=== PATIENT | male | born 1990 | race American Indian/Alaskan Native ===

== ENCOUNTER 2021-03-04 12:09 | Emergency (ER) | payer MEDICAID ==
[2021-03-04] MEDS ORDERED: SODIUM CHLORIDE 0.9% 1000 ML 1,000 ML IV ONE (12:52)
[2021-03-04] MEDS ORDERED: dexAMETHasone 4 MG/ML VIAL IV ONE (12:56)
[2021-03-04] MEDS ORDERED: HYDROcodone/ACETAMINOPHEN 5-325 MG TAB PO ONE (12:57)
--- NOTE | 2021-03-04 12:57 | Emergency Department Report ---
ED General Adult HPI - General Chief complaint: Skin/Abscess/Foreign Body Stated complaint: LEFT SIDE OF FACE/SWOLLEN/TOOTHPAIN Time Seen by Provider: 03/04/21 12:51 Source: patient Mode of arrival: Ambulatory Limitations: No Limitations - History of Present Illness Initial comments: 31 yo comes to er with facial swelling. He reports dental caries. He states he woke up this AM with the swelling- none of it was there yesterday. vss abc intact ambulatory and taking po non toxic non ill appearing no tachycardia, hypotension or fever -: Gradual (dental caries), Sudden (facial swelling ), days(s) Location: face Radiation: non-radiation Consistency: constant Improves with: none Worsens with: none Associated Symptoms: denies other symptoms. denies: confusion, chest pain, co ugh, diaphoresis, fever/chills, headaches, loss of appetite, malaise, nausea/vomiting, rash, seizure, shortness of breath, syncope, weakness Treatments Prior to Arrival: NSAID - Related Data Previous Rx's Medication Instructions Recorded Last Taken Type Clindamycin [Clindamycin CAP] 300 mg PO Q8H #30 cap 03/04/21 Unknown Rx Allergies Allergy/AdvReac Type Severity Reaction Status Date / Time No Known Allergies Allergy Verified 03/04/21 12:47 ED Review of Systems ROS: Stated complaint: LEFT SIDE OF FACE/SWOLLEN/TOOTHPAIN Other details as noted in HPI Comment: All other systems reviewed and negative ED Past Medical Hx - Past Medical History Previous Medical History?: Yes Hx Hypertension: Yes - Surgical History Past Surgical History?: No - Family History Family history: no significant - Social History Smoking Status: Never Smoker Substance Use Type: None - Medications Home Medications: Home Medications Medication Instructions Recorded Confirmed Last Taken Type Clindamycin [Clindamycin CAP] 300 mg PO Q8H #30 cap 03/04/21 Unknown Rx ED Physical Exam - General Limitations: No Limitations General appearance: alert, in no apparent distress - Head Head exam: Present: atraumatic, normocephalic - Eye Eye exam: Present: normal appearance - ENT ENT exam: Present: mucous membranes moist - Expanded ENT Exam Expanded Mouth exam: Present: normal external inspection Teeth exam: Present: normal inspection Throat exam: Positive: normal inspection - Neck Neck exam: Present: normal inspection - Respiratory Respiratory exam: Present: normal lung sounds bilaterally. Absent: respiratory distress - Cardiovascular Cardiovascular Exam: Present: regular rate, normal rhythm. Absent: systolic murmur, diastolic murmur, rubs, gallop - GI/Abdominal GI/Abdominal exam: Present: soft, normal bowel sounds - Rectal Rectal exam: Present: deferred - Extremities Exam Extremities exam: Present: normal inspection - Back Exam Back exam: Present: normal inspection - Neurological Exam Neurological exam: Present: alert, oriented X3 - Psychiatric Psychiatric exam: Present: normal affect, normal mood - Skin Skin exam: Present: warm, dry, intact, normal color. Absent: rash ED Course Vital Signs 03/04/21 03/04/21 03/04/21 12:44 13:28 16:41 Temperature 99.3 F Pulse Rate 90 84 89 Respiratory 16 18 18 Rate Blood Pressure 164/102 Blood Pressure 168/104 142/98 [Left] O2 Sat by Pulse 100 99 98 Oximetry ED Medical Decision Making - Lab Data Result diagrams: 03/04/21 13:38 03/04/21 13:38 - Radiology Data Radiology results: report reviewed, image reviewed see report - Medical Decision Making Lab Results 03/04/21 03/04/21 Range/Units 13:38 13:38 WBC 18.2 H (4.5-11.0) K/mm3 RBC 4.88 (3.65-5.03) M/mm3 Hgb 14.0 (11.8-15.2) gm/dl Hct 41.6 (35.5-45.6) % MCV 85 (84-94) fl MCH 29 (28-32) pg MCHC 34 (32-34) % RDW 15.0 (13.2-15.2) % Plt Count 197 (140-440) K/mm3 Sodium 141 (137-145) mmol/L Potassium 4.0 (3.6-5.0) mmol/L Chloride 105.0 (98-107) mmol/L Carbon Dioxide 23 (22-30) mmol/L Anion Gap 17 mmol/L BUN 3 L (9-20) mg/dL Creatinine 0.7 L (0.8-1.3) mg/dL Estimated GFR > 60 ml/min BUN/Creatinine Ratio 4 % Glucose 95 (75-100) mg/dL Calcium 9.0 (8.4-10.2) mg/dL Vital Signs 03/04/21 03/04/21 12:44 13:28 Temperature 99.3 F Pulse Rate 90 84 Respiratory 16 18 Rate Blood Pressure 164/102 Blood Pressure 168/104 [Left] O2 Sat by Pulse 100 99 Oximetry Pt taking PO without difficulty labs noted ct noted NS/ clinda IV; norco for pain while in ED dc home with dc plan of care including diet, activity meds and follow up. On dc pt taking po, ambulatory and in nad he verbalizes understanding of the importance of follow up. - Differential Diagnosis ro facial cellulitis Critical care attestation.: If time is entered above; I have spent that time in minutes in the direct care of this critically ill patient, excluding procedure time. ED Disposition Clinical Impression: Facial cellulitis, Dental caries Disposition: HOME / SELF CARE / HOMELESS Is pt being admited?: No Does the pt Need Aspirin: No Condition: Stable Instructions: Cellulitis, Adult Additional Instructions: stay well hydrated with water motrin or tylenol for pain med as ordered today follow up with pcp in 48 hours for recheck referral below diet and activity as tolerated Prescriptions: Clindamycin [Clindamycin CAP] 300 mg PO Q8H #30 cap Referrals: JOEY BROWN MD [Staff Physician] - 3-5 Days Forms: Work/School Release Form(ED) Time of Disposition: 16:13
[2021-03-04 14:17] LABS: Hematocrit 41.6 % (35.5-45.6); Mean Corpuscular HGB Conc 34 % (32-34); Mean Corpuscular Volume 85 fl (84-94); Platelet Count 197 K/mm3 (140-440); Red Blood Count 4.88 M/mm3 (3.65-5.03)
[2021-03-04 14:19] LABS: Blood Urea Nitrogen 3 mg/dL (9-20); Hemolysis Index 10
[2021-03-04 14:30] LABS: BUN/Creatinine Ratio 4
[2021-03-04] MEDS ORDERED: IBUPROFEN 800 MG TAB PO ONE (16:13)
--- NOTE | 2021-03-04 16:18 | Cat Scan Report ---
SINUS AND FACIAL CT 03/04/2021 HISTORY: left side facial swelling. 100 ML OF OMNIPAQUE 300 GIVEN FINDINGS: CT images of the orbits, sinuses, and facial structures were obtained. Intravenous contrast was not administered. There is prominent cellulitic soft tissue changes in the left side of face, extending from the visual ized portions of the lateral aspect of left mandible upward into the maxillary region, and extending up into the periorbital soft tissues on the left side. There is numerous periodontal lucencies bilaterally, including a large area of expansion in the left maxilla alveolar ridge. This expanded lucency is dehiscent laterally, and is associated with the posi tion of the facial cellulitic changes. This is a possible source of cellulitic infection. There is no evidence of facial soft tissue abscess. Incidental note is made of prior postsurgical changes in the left lateral mandibular ramus. There is no evidence of acute sinusitis. There is no evidence of intraorbital abnormality. Should be noted that the lowest extent of the surgical changes is not included on these protocols whi ch are performed to evaluate paranasal sinuses and orbits. The lower extent of cellulitic changes in the submandibular region could be evaluated with the use of soft tissue neck CT protocol if necessary . IMPRESSION: Left facial soft tissue cellulitis without evidence of abscess. Most likely source is an extended periodontal lucency/abscess in the left maxilla alveolar ridge. All CT scans at this location are performed using dose reduction to ALARA by means of automated expos ure control. Signer Name: George Block MD Signed: 03/04/2021 4:11 PM Workstation Name: [id number]
[2021-03-04 16:42] VITALS: BP 142/98
== END 2021-03-04 16:54 | disposition home or self-care (01) ==
LOC: ED 12:09
DX: L03.211 Cellulitis of face (principal); I10 Essential (primary) hypertension
CPT/HCPCS: 36415; 70481; 70486; 80048; 85027; 96365; 96375; 99284; J1100; J7030; Q9967; 96374